=== PATIENT | female | born 1940 | race Caucasian/White ===

== ENCOUNTER 2017-10-16 14:10 | Emergency (ER) | payer MEDICARE, BC ==
[~2017-10-16] VITALS: Ht 172.7 cm; Wt 105.0 kg
[~2017-10-16 14:10] MED LIST: GABA-530 PO
[2017-10-16 15:06] VITALS: BP 136/93
== END 2017-10-16 16:40 | disposition home or self-care (01) ==
LOC: ER 14:15
DX: I80.02 Phlebitis and thrombophlebitis of superficial vessels of left lower extremity (principal); I10 Essential (primary) hypertension; J45.909 Unspecified asthma, uncomplicated; E11.9 Type 2 diabetes mellitus without complications; Z90.49 Acquired absence of other specified parts of digestive tract; Z98.890 Other specified postprocedural states
CPT/HCPCS: 93971; 99284

== ENCOUNTER 2018-03-06 14:28 | Emergency (ER) | payer MEDICARE, BC ==
[~2018-03-06] VITALS: Ht 172.7 cm; Wt 105.3 kg
[2018-03-06 16:27] VITALS: BP 121/67
== END 2018-03-06 16:28 | disposition home or self-care (01) ==
LOC: ER 14:28
DX: M54.5 Low back pain (principal); I10 Essential (primary) hypertension; J45.909 Unspecified asthma, uncomplicated; E11.9 Type 2 diabetes mellitus without complications; Z86.718 Personal history of other venous thrombosis and embolism; Z90.49 Acquired absence of other specified parts of digestive tract; Z90.710 Acquired absence of both cervix and uterus; Z88.8 Allergy status to other drugs, medicaments and biological substances; Z79.899 Other long term (current) drug therapy; W18.39XA Other fall on same level, initial encounter; Y93.89 Activity, other specified; Y92.89 Other specified places as the place of occurrence of the external cause; Y99.8 Other external cause status
CPT/HCPCS: 71046; 72100; 99284

== ENCOUNTER 2019-02-09 15:44 | Emergency (ER) | payer MEDICARE, BC ==
[~2019-02-09] VITALS: Ht 172.7 cm; Wt 107.0 kg
[~2019-02-09 15:44] MED LIST changes: +ONDA4TAB12 PO
[2019-02-09 16:39] VITALS: BP 173/81
[2019-02-09 16:58] LABS: BASOPHILS # (AUTO) 0.1 X10'3 (0-0.2); BASOPHILS % (AUTO) 0.7 % (0-1); EOSINOPHILS # (AUTO) 0.3 X10'3 (0-0.9); EOSINOPHILS % (AUTO) 3.9 % (0-6); HEMATOCRIT 39.2 % (35.0-45.0); HEMOGLOBIN 13.3 g/dl (12.0-16.0); LYMPHOCYTES % (AUTO) 22.3 % (21-51); MEAN CORPUSCULAR HEMOGLOBIN 30.2 PG (27.0-31.0); MEAN CORPUSCULAR HGB CONC 33.8 g/dL (33.0-36.5); MEAN CORPUSCULAR VOLUME 89.2 FL (78-98); MONOCYTES # (AUTO) 0.6 X10'3 (0-0.9); NEUTROPHILS # (AUTO) 5.9 X10'3 (1.8-7.7); NEUTROPHILS % (AUTO) 66.1 % (42-75); PLATELET COUNT 253 X10'3 (140-440); RED CELL DISTRIBUTION WIDTH 13.6 % (11.5-14.5)
[2019-02-09 17:10] LABS: ALANINE AMINOTRANSFERASE 39 U/L (12-78); ALBUMIN 3.6 G/DL (3.4-5.0); ALBUMIN/GLOBULIN RATIO 0.9 (1.1-1.5); ALKALINE PHOSPHATASE 135 IU/L (46-116); ANION GAP 6 (8-16); ASPARTATE AMINO TRANSFERASE 21 U/L (10-37); BILIRUBIN,TOTAL 0.5 MG/DL (0.1-1.0); BLOOD UREA NITROGEN 16 MG/DL (7-18); CALCIUM 8.8 MG/DL (8.5-10.1); CHLORIDE 107 MMOL/L (99-107); CREATININE 0.84 MG/DL (0.40-0.90); GLUCOSE 125 MG/DL (70-104); POTASSIUM 3.8 MMOL/L (3.5-5.1); SODIUM 143 MMOL/L (135-145); TOTAL CARBON DIOXIDE 29.6 MMOL/L (24-32); TOTAL PROTEIN 7.5 G/DL (6.4-8.2); eGFR 66 ML/MIN
[2019-02-09] MEDS ORDERED: potassium chloride 8mEq ER tablet PO ONE (17:35)
[2019-02-09] MEDS ORDERED: furosemide 10 MG/1 ML 10ml inj IV ONE (17:35)
== END 2019-02-09 18:18 | disposition home or self-care (01) ==
LOC: ER 15:45
DX: I87.2 Venous insufficiency (chronic) (peripheral) (principal); I83.93 Asymptomatic varicose veins of bilateral lower extremities; R06.02 Shortness of breath; I10 Essential (primary) hypertension; E11.9 Type 2 diabetes mellitus without complications; J45.909 Unspecified asthma, uncomplicated; Z87.19 Personal history of other diseases of the digestive system; Z86.718 Personal history of other venous thrombosis and embolism; Z86.73 Personal history of transient ischemic attack (TIA), and cerebral infarction without residual deficits; Z88.8 Allergy status to other drugs, medicaments and biological substances; Z79.899 Other long term (current) drug therapy; Z90.49 Acquired absence of other specified parts of digestive tract; Z90.710 Acquired absence of both cervix and uterus; Z90.89 Acquired absence of other organs
CPT/HCPCS: 36415; 71045; 80053; 83880; 84484; 85025; 93005; 96374; 99284; J1940

== ENCOUNTER 2019-04-07 12:18 | Emergency (ER) | payer MEDICARE, BC ==
[~2019-04-07] VITALS: Ht 172.7 cm; Wt 102.0 kg
[2019-04-07] MEDS ORDERED: pantoprazole 40 MG vial IV ONE (13:45)
[2019-04-07] MEDS ORDERED: normal saline 1000ML IV soln IVB ONE (13:45)
[2019-04-07] MEDS ORDERED: morphine 4 MG/ML inj SYRINge IV ONE (13:45)
[2019-04-07] MEDS ORDERED: ondansetron/PF 4mg/2ml inj IV ONE (13:45)
[2019-04-07 14:06] LABS: BASOPHILS % (AUTO) 0.5 % (0-1); EOSINOPHILS # (AUTO) 0.3 X10'3 (0-0.9); HEMATOCRIT 36.8 % (35.0-45.0); HEMOGLOBIN 12.6 g/dl (12.0-16.0); LYMPHOCYTES # (AUTO) 1.9 X10'3 (1.1-4.8); LYMPHOCYTES % (AUTO) 21.4 % (21-51); MEAN CORPUSCULAR HEMOGLOBIN 30.4 PG (27.0-31.0); MEAN CORPUSCULAR HGB CONC 34.3 g/dL (33.0-36.5); MEAN CORPUSCULAR VOLUME 88.8 FL (78-98); MONOCYTES # (AUTO) 0.4 X10'3 (0-0.9); MONOCYTES % (AUTO) 4.8 % (2-12); NEUTROPHILS # (AUTO) 6.2 X10'3 (1.8-7.7); NEUTROPHILS % (AUTO) 70.3 % (42-75); PLATELET COUNT 268 X10'3 (140-440); RED BLOOD COUNT 4.14 X10'6 (4.20-5.60); WHITE BLOOD COUNT 8.8 X10'3 (4.5-11.0)
[2019-04-07 14:21] LABS: ALANINE AMINOTRANSFERASE 24 U/L (12-78); ALBUMIN 3.2 G/DL (3.4-5.0); ALBUMIN/GLOBULIN RATIO 0.7 (1.1-1.5); ALKALINE PHOSPHATASE 109 IU/L (46-116); ANION GAP 7 (8-16); ASPARTATE AMINO TRANSFERASE 18 U/L (10-37); BILIRUBIN,TOTAL 0.6 MG/DL (0.1-1.0); BLOOD UREA NITROGEN 10 MG/DL (7-18); BUN/CREATININE RATIO 10.5 (6.6-38.0); CALCIUM 8.9 MG/DL (8.5-10.1); CHLORIDE 106 MMOL/L (99-107); CREATININE 0.95 MG/DL (0.40-0.90); GLUCOSE 220 MG/DL (70-104); LIPASE 153 U/L (73-393); POTASSIUM 3.3 MMOL/L (3.5-5.1); SODIUM 142 MMOL/L (135-145); TOTAL CARBON DIOXIDE 28.7 MMOL/L (24-32); TOTAL PROTEIN 7.5 G/DL (6.4-8.2); eGFR 57 ML/MIN
[2019-04-07] MEDS ORDERED: iohexol 300mg/ml 100ml inj. ONE (14:45)
--- NOTE | 2019-04-07 15:19 | NUR ---
Pt returned from CT scan. Pt's IV restarted infusing. Pt reports a small swollen area to the left side of the lower lip. Pt reports her CT scan was completed with IV contrast.
[2019-04-07] MEDS ORDERED: diphenhydrAMINE 50 mg/ml inj IV ONE (15:50)
[2019-04-07] MEDS ORDERED: HYDR-3965 PO (15:57)
[2019-04-07] MEDS ORDERED: AMOX-580 PO (15:57)
[2019-04-07 16:44] VITALS: BP 141/74
== END 2019-04-07 16:45 | disposition home or self-care (01) ==
LOC: ER 12:19
DX: K57.92 Diverticulitis of intestine, part unspecified, without perforation or abscess without bleeding (principal); R19.7 Diarrhea, unspecified; I10 Essential (primary) hypertension; J45.909 Unspecified asthma, uncomplicated; E11.9 Type 2 diabetes mellitus without complications; Z86.718 Personal history of other venous thrombosis and embolism; Z86.73 Personal history of transient ischemic attack (TIA), and cerebral infarction without residual deficits; Z90.49 Acquired absence of other specified parts of digestive tract; Z90.710 Acquired absence of both cervix and uterus; Z90.89 Acquired absence of other organs; Z98.890 Other specified postprocedural states; Z88.8 Allergy status to other drugs, medicaments and biological substances; Z79.899 Other long term (current) drug therapy
CPT/HCPCS: 36415; 74177; 80053; 83605; 83690; 85025; 87040; 96374; 96375; 99284; C9113; J1200; J2270; J2405; J7040; Q9967

== ENCOUNTER 2019-05-07 09:58 | Inpatient (IN) | payer MEDICARE, BC ==
[2019-05-07] VITALS (16 sets, daily range): BP systolic 115–186; BP diastolic 40–95
[~2019-05-07] VITALS: Ht 172.7 cm; Wt 98.7 kg
[~2019-05-07 09:58] MED LIST changes: +ASPI81TA52 PO; +ATOR40TA72 PO; +CELE-85 PO; +DILT240C52 PO; +DULO60CA65 PO; +FURO40TA4 PO; -GABA-530 PO; +INSU300I SQ; +LOSA50TA64 PO; -ONDA4TAB12 PO; +SPIR25TA5 PO; +TRAZ-219 PO; +VALA500T37 PO; +ZOLP10TA5 PO; +albuterol 2.5 MG/3 ML nebule NEB ONE; +ceFOXitin sod/dextrose 2g/50ml 50 ML IV ONE; +famotidine 20mg tablet PO ONE
[2019-05-07] MEDS: ringers solution, lacted 1,000 ML IV SCH (10:32)
[2019-05-07 11:18] LABS: CLARITY,URINE SLIGHTLY CLOUDY (Clear); COLOR,URINE YELLOW (Yellow); GLUCOSE, URINE NEGATIVE (Neg); KETONES,URINE NEGATIVE (Neg); LEUKOCYTE ESTERASE ,URINE NEGATIVE (Neg); NITRITES, URINE NEGATIVE (Neg); OCCULT BLOOD,URINE NEGATIVE (Neg); PH,URINE 5.5 (4.8-8.0); PROTEIN,URINE NEGATIVE (Neg); UROBILINOGEN,URINE 0.2 E.U/dL (0.2-1.0)
[2019-05-07 11:21] LABS: UA COLLECTION TYPE OTHER
[2019-05-07 11:23] LABS: BASOPHILS % (AUTO) 0.4 % (0-1); EOSINOPHILS % (AUTO) 0.4 % (0-6); LYMPHOCYTES # (AUTO) 1.8 X10'3 (1.1-4.8); LYMPHOCYTES % (AUTO) 16.1 % (21-51); MEAN CORPUSCULAR HEMOGLOBIN 30.7 PG (27.0-31.0); MEAN CORPUSCULAR HGB CONC 34.8 g/dL (33.0-36.5); MEAN CORPUSCULAR VOLUME 88.1 FL (78-98); MEAN PLATELET VOLUME 7.2 FL (7.4-10.4); MONOCYTES # (AUTO) 0.6 X10'3 (0-0.9); MONOCYTES % (AUTO) 5.4 % (2-12); NEUTROPHILS # (AUTO) 8.8 X10'3 (1.8-7.7); NEUTROPHILS % (AUTO) 77.7 % (42-75); PRE OP HEMATOCRIT 38.8 % (35.0-45.0); PRE OP HEMOGLOBIN 13.5 g/dL (12.0-16.0); PRE OP PLATELET COUNT 306 X10'3 (140-440); RED CELL DISTRIBUTION WIDTH 13.6 % (11.5-14.5)
[2019-05-07 11:28] LABS: PRE OP PROTIME 10.3 SECONDS (9.0-12.0)
[2019-05-07 11:30] LABS: ALBUMIN 4.2 G/DL (3.4-5.0); ALKALINE PHOSPHATASE 135 IU/L (46-116); BLOOD UREA NITROGEN 21 MG/DL (7-18); BUN/CREATININE RATIO 17.6 (6.6-38.0); CALCIUM 9.2 MG/DL (8.5-10.1); CHLORIDE 102 MMOL/L (99-107); CREATININE 1.19 MG/DL (0.40-0.90); PRE OP ALT 24 U/L (30-65); PRE OP ANION GAP 12 (8-16); PRE OP AST 27 U/L (10-37); PRE OP GLUCOSE 115 MG/DL (70-104); PRE OP POTASSIUM 3.9 MMOL/L (3.4-5.1); PRE OP SODIUM 138 MMOL/L (135-145); TOTAL CARBON DIOXIDE 23.6 MMOL/L (24-32); TOTAL PROTEIN 8.3 G/DL (6.4-8.2); eGFR 44 ML/MIN
[2019-05-07 11:37] LABS: HEMOGLOBIN A1C 7.7 % (4.5-6.2)
[2019-05-07] MEDS ORDERED: BUPIVAcaine/PF 2.5 mg/ml (0.25%) 30ml vial ONE (11:51)
[2019-05-07] MEDS ORDERED: ceFAZolin 1000mg inj ONE (11:51)
[2019-05-07 12:01] LABS: BACTERIA,URINE 1+ /HPF (Neg); MUCUS STRANDS FEW /LPF (Neg); RBC,URINE 0-2 /HPF (0-2); SQUAMOUS EPITHELIAL CELL,UR MODERATE /LPF (FEW); STARCH,URINE MANY /HPF (NEGATIVE)
[2019-05-07] MEDS ORDERED: desflurane 240ml liquid inh. IH ONE (13:05)
[2019-05-07] MEDS ORDERED: midazolam 2 mg/2 ml injection ONE (13:14)
[2019-05-07] MEDS ORDERED: fentaNYL /PF 50mcg/ml 5ml ampule ONE (13:15)
[2019-05-07] MEDS ORDERED: LIDOcaine 2% (20mg/ml) 5ml vial ONE (13:17)
[2019-05-07] MEDS ORDERED: propofol inj 20 ML IV ONE (13:17)
[2019-05-07] MEDS ORDERED: rocuronium 10mg/ml inj IV ONE ×2 (13:18→15:29)
[2019-05-07] MEDS ORDERED: naloxone 0.4 mg/ml inj IV PRN (13:45)
[2019-05-07] MEDS ORDERED: CADD PCA waste documentation MC PRN (13:45)
[2019-05-07] MEDS ORDERED: MESSAGE TO PHARMACY PO ONE (13:45)
[2019-05-07] MEDS ORDERED: glucagon, human recombinant 1mg kit SUBCUT PRN (13:45)
[2019-05-07] MEDS ORDERED: dextrose ORAL solution 15 GM/59 ML bottle PO PRN ×2 (13:45)
[2019-05-07] MEDS ORDERED: dextrose 50%-water 50ml dispensing syringe IV PRN ×2 (13:45)
[2019-05-07] MEDS: HYDROmorphone/NS 1 mg/ml CADD 50 ML IV SCH ×6 (15:00→23:00)
[2019-05-07] MEDS ORDERED: acetaminophen 1,000mg/100ml IV 100 ML IV ONE (15:29)
[2019-05-07] MEDS ORDERED: ondansetron/PF 4mg/2ml inj ONE (15:32)
--- NOTE | 2019-05-07 15:50 | NUR ---
Received from OR via BED , accompanied by Anesthesiologist DR RUTHERFORD and report given by Anesthesiolgist. PATIENT WAKING UP, DENIES PAIN, V/S WNL, NEUROVASCULAR CHECKS INTACT, 18G PIV LUE, SCD ON, BANDAIDS TO LAP SIGHTS OF ABDOMEN AND PROVENA DRESSING AT 125 CONTINOUS SUCTION WITH NO LEAKS DETECTED AND CDI. F/C DRAINING REDISH PINK URINE W/ NO CLOTS OBSERVED.
--- NOTE | 2019-05-07 16:40 | NUR ---
PATIENT A&OX4, C/O PAIN SURVEY DIRECTOR GIVEN AND BOLUS GIVEN, PATIENT USING BUTTON ON SURVEY DIRECTOR AND VERBALIZED UNDERSTANDING OF SURVEY DIRECTOR, V/S WNL, NEUROVASCULAR CHECKS INTACT, 18G PIV LUE, SCD ON, BANDAIDS TO LAP SIGHTS OF ABDOMEN AND PROVENA DRESSING AT 125 CONTINOUS SUCTION WITH NO LEAKS DETECTED AND CDI. F/C DRAINING REDISH PINK URINE W/ NO CLOTS OBSERVED. PATIENT TAKEN TO 344B WITH ALL BELONGINGS AND HOOKED UP TO MONITORS IN ROOM AND REPORT GIVEN TO RN WHO HAS TAKEN OVER PATIENT CARE.
--- NOTE | 2019-05-07 16:51 | NUR ---
Received patient to room 344b via bed accompanied by x1 staff, Dustin. Patient drowsy but easily awakens to voice. Patient c/o pain to abd 10/10. Patient educated on use of dilaudid cadd pump. Dustin, oil recovery unit operator administered boluses. Lap sites to abd cdi. Prevena wound vac patent and cdi. Willard catheter draining to gravity with pink color. Bed low and locked. Side rails x2 up. Oriented patient to room and call light. Call light within patient's reach.
[2019-05-07] MEDS ORDERED: ketorolac tromethamine 15mg/ml inj. IV ONE (17:15)
--- NOTE | 2019-05-07 17:20 | NUR ---
Notified Dr. Leiva patient c/o unmanaged pain. Dr. Leiva ok for 0.2mg bolus of dilaudid cadd and also ordered x1 time dose of toradol.
--- NOTE | 2019-05-07 18:47 | NUR ---
Patient in room [facility]. I have received report from Edna ALEXANDER and had the opportunity to ask questions and assume patient care.
--- NOTE | 2019-05-07 18:52 | NUR ---
Problems reprioritized. Patient report given, questions answered & plan of care reviewed with CATHERINE Land.
[2019-05-07 20:16] LABS: POTASSIUM 5.4 MMOL/L (3.5-5.1); eGFR 44 ML/MIN
[2019-05-07] MEDS ORDERED: INSULIN GLARGINE HUM REC ANLOG 60 UNIT SQ SCH (21:00)
[2019-05-07] MEDS: insulin glargine (Lantus) pen - multi-dose SQ SCH (21:30)
[2019-05-07] MEDS: zolpidem 5mg tablet PO SCH (21:39)
[2019-05-07] MEDS: traZODone 50mg tablet PO SCH (21:39)
[2019-05-07] MEDS: atorvastatin 20mg tablet PO SCH (21:40)
[2019-05-08] VITALS: BP 123/65
[2019-05-08] MEDS: HYDROmorphone/NS 1 mg/ml CADD 50 ML IV SCH ×12 (01:00→23:00)
[2019-05-08 04:00] VITALS: BP 120/53
[2019-05-08 04:59] LABS: BASOPHILS % (AUTO) 0 % (0-1); EOSINOPHILS % (AUTO) 0 % (0-6); HEMATOCRIT 34.6 % (35.0-45.0); HEMOGLOBIN 11.9 g/dl (12.0-16.0); LYMPHOCYTES # (AUTO) 0.9 X10'3 (1.1-4.8); LYMPHOCYTES % (AUTO) 7.7 % (21-51); MEAN CORPUSCULAR HEMOGLOBIN 30.9 PG (27.0-31.0); MEAN CORPUSCULAR HGB CONC 34.4 g/dL (33.0-36.5); MEAN PLATELET VOLUME 7.6 FL (7.4-10.4); MONOCYTES # (AUTO) 0.6 X10'3 (0-0.9); MONOCYTES % (AUTO) 5.2 % (2-12); NEUTROPHILS # (AUTO) 10.7 X10'3 (1.8-7.7); NEUTROPHILS % (AUTO) 87.1 % (42-75); PLATELET COUNT 311 X10'3 (140-440); RED BLOOD COUNT 3.85 X10'6 (4.20-5.60); RED CELL DISTRIBUTION WIDTH 13.7 % (11.5-14.5); WHITE BLOOD COUNT 12.3 X10'3 (4.5-11.0)
[2019-05-08 05:12] LABS: ANION GAP 9 (8-16); CALCIUM 8.4 MG/DL (8.5-10.1); CHLORIDE 102 MMOL/L (99-107); CREATININE 1.22 MG/DL (0.40-0.90); GLUCOSE 166 MG/DL (70-104); POTASSIUM 5.2 MMOL/L (3.5-5.1); SODIUM 136 MMOL/L (135-145); TOTAL CARBON DIOXIDE 25.1 MMOL/L (24-32); eGFR 43 ML/MIN
[2019-05-08 05:19] LABS: BLOOD UREA NITROGEN 24 MG/DL (7-18); BUN/CREATININE RATIO 19.7 (6.6-38.0)
--- NOTE | 2019-05-08 06:21 | NUR ---
Problems reprioritized. Patient report given, questions answered & plan of care reviewed with Yohana ALEXANDER.
--- NOTE | 2019-05-08 06:50 | NUR ---
Patient in room [facility]. I have received report from CATHERINE CHAWLA and had the opportunity to ask questions and assume patient care.
[2019-05-08 07:00] VITALS: BP 121/66
[2019-05-08] MEDS: celeCOXIB 100mg capsule PO SCH (10:26)
[2019-05-08] MEDS: furosemide 40mg tablet PO SCH (10:26)
[2019-05-08] MEDS: aspirin 81mg tablet.DR PO SCH (10:27)
[2019-05-08] MEDS: duloxetine 30mg CAPSULE.DR PO SCH (10:27)
[2019-05-08] MEDS: diltiazem CD 120mg capsule (once-daily) PO SCH (10:27)
[2019-05-08] MEDS: losartan 50mg tablet PO SCH (10:27)
[2019-05-08] MEDS: spironolactone 25 MG tablet PO SCH (10:27)
[2019-05-08] MEDS: valacyclovir 500mg tablet PO SCH (10:27)
[2019-05-08] MEDS: ringers solution, lacted 1,000 ML IV SCH (10:31)
[2019-05-08 11:00] VITALS: BP 131/62
[2019-05-08] MEDS: insulin Lispro (HumaLOG) vial - multi-dose SQ SCH ×2 (14:52→19:00)
--- NOTE | 2019-05-08 15:14 | NUR ---
DM Consult: A1C 7.7 Pt hx T2DM and chronic diverticular disease s/p sigmoid resection for dense adhesions and severe diverticulitis of descending colon per MD note. Pt/family seen by SHELBY for written/verbal DM/low-fiber diet ed w/ RD contact information provided. RD encouraged pt to attend CDE course and contact RD if further questions/concerns. Addendum: 05/08/19 at [address] Amended: Links added.
--- NOTE | 2019-05-08 18:15 | NUR ---
Problems reprioritized. Patient report given, questions answered & plan of care reviewed with CATHERINE CHAWLA.
--- NOTE | 2019-05-08 18:20 | NUR ---
Patient in room [facility]. I have received report from Yoahna ALEXANDER and had the opportunity to ask questions and assume patient care.
[2019-05-08 18:30] VITALS: BP 123/51
[2019-05-08] MEDS: zolpidem 5mg tablet PO SCH (21:00)
[2019-05-08] MEDS: insulin glargine (Lantus) pen - multi-dose SQ SCH (21:42)
[2019-05-08] MEDS: atorvastatin 20mg tablet PO SCH (22:10)
[2019-05-08] MEDS: traZODone 50mg tablet PO SCH (22:10)
[2019-05-09] VITALS: BP 101/57
[2019-05-09] MEDS: HYDROmorphone/NS 1 mg/ml CADD 50 ML IV SCH ×12 (01:00→23:00)
[2019-05-09 04:45] LABS: BASOPHILS % (AUTO) 0.3 % (0-1); EOSINOPHILS % (AUTO) 0.2 % (0-6); HEMATOCRIT 27.5 % (35.0-45.0); HEMOGLOBIN 9.4 g/dl (12.0-16.0); LYMPHOCYTES % (AUTO) 18.9 % (21-51); MEAN CORPUSCULAR HEMOGLOBIN 30.7 PG (27.0-31.0); MEAN CORPUSCULAR VOLUME 90.2 FL (78-98); MEAN PLATELET VOLUME 7.3 FL (7.4-10.4); MONOCYTES # (AUTO) 1.1 X10'3 (0-0.9); MONOCYTES % (AUTO) 10.7 % (2-12); NEUTROPHILS # (AUTO) 7.4 X10'3 (1.8-7.7); NEUTROPHILS % (AUTO) 69.9 % (42-75); PLATELET COUNT 257 X10'3 (140-440); RED BLOOD COUNT 3.05 X10'6 (4.20-5.60); RED CELL DISTRIBUTION WIDTH 13.6 % (11.5-14.5); WHITE BLOOD COUNT 10.6 X10'3 (4.5-11.0)
[2019-05-09 05:05] LABS: ALANINE AMINOTRANSFERASE 18 U/L (12-78); ALBUMIN 2.7 G/DL (3.4-5.0); ALBUMIN/GLOBULIN RATIO 0.9 (1.1-1.5); ALKALINE PHOSPHATASE 75 IU/L (46-116); ANION GAP 5 (8-16); ASPARTATE AMINO TRANSFERASE 23 U/L (10-37); BILIRUBIN,TOTAL 0.9 MG/DL (0.1-1.0); BLOOD UREA NITROGEN 21 MG/DL (7-18); BUN/CREATININE RATIO 19.1 (6.6-38.0); CALCIUM 8.6 MG/DL (8.5-10.1); CHLORIDE 101 MMOL/L (99-107); GLUCOSE 143 MG/DL (70-104); POTASSIUM 4.7 MMOL/L (3.5-5.1); SODIUM 133 MMOL/L (135-145); TOTAL CARBON DIOXIDE 26.8 MMOL/L (24-32); TOTAL PROTEIN 5.7 G/DL (6.4-8.2); eGFR 48 ML/MIN
--- NOTE | 2019-05-09 06:15 | NUR ---
Patient in room [facility]. I have received report from CATHERINE CHAWLA and had the opportunity to ask questions and assume patient care.
--- NOTE | 2019-05-09 06:46 | NUR ---
Unable to remove saini catheter this am D/T rapid going on on A bed. Day RN aware.
--- NOTE | 2019-05-09 06:48 | NUR ---
Problems reprioritized. Patient report given, questions answered & plan of care reviewed with Yohana ALEXANDER. Addendum: 05/09/19 at 0651 by Shanda Gaffney RN Day nurse to remind patient to have her family bring in her special pillows for her feet.
[2019-05-09 07:00] VITALS: BP 119/58
[2019-05-09] MEDS: duloxetine 30mg CAPSULE.DR PO SCH (08:40)
[2019-05-09] MEDS: spironolactone 25 MG tablet PO SCH (08:40)
[2019-05-09] MEDS: celeCOXIB 100mg capsule PO SCH (08:40)
[2019-05-09] MEDS: diltiazem CD 120mg capsule (once-daily) PO SCH (08:40)
[2019-05-09] MEDS: valacyclovir 500mg tablet PO SCH (08:41)
[2019-05-09] MEDS: aspirin 81mg tablet.DR PO SCH (08:41)
[2019-05-09] MEDS: losartan 50mg tablet PO SCH (08:41)
[2019-05-09] MEDS: furosemide 40mg tablet PO SCH (08:41)
[2019-05-09] MEDS: insulin Lispro (HumaLOG) vial - multi-dose SQ SCH ×2 (10:10→13:52)
[2019-05-09 11:00] VITALS: BP 115/69
--- NOTE | 2019-05-09 11:40 | NUR ---
NOTICED THERE WERE NO HOURLY ROUNDING OR NUTRITIONAL INTAKE INTERVENTIONS SO I ADDED THEM. I ALSO HAD THE PATIENT YESTERDAY. I MADE HOURLY ROUNDS AND PATIENT REMAINED SAFE AND FREE OF HARM. SHE ATE 75 TO 100% OF MEAL YESTERDAY
[2019-05-09 18:30] VITALS: BP 112/44
--- NOTE | 2019-05-09 18:30 | NUR ---
Patient in room [facility]. I have received report from Yohana ALEXANDER and had the opportunity to ask questions and assume patient care. Addendum: 05/09/19 at 1908 by Shanda Gaffney RN While in room discussing plan of care, patient passed some gas. Patient stated that she felt that maybe something came out with it. Rolled pt. and small amount of blood noted. Cleaned Pt., and D/c'd saini catheter and assist to bathroom. LInen /bed cleaned.
--- NOTE | 2019-05-09 19:00 | NUR ---
Patient has been up to bathroom x2/ Voiding w/o any complications and dark blood being passed from surgery. [address] to monitor. Addendum: 05/09/19 at 1937 by Shanda Gaffney RN Patient in no distress and is ready to go walking already.
--- NOTE | 2019-05-09 19:07 | NUR ---
Problems reprioritized. Patient report given, questions answered & plan of care reviewed with CATHERINE Land.
[2019-05-09] MEDS: insulin glargine (Lantus) pen - multi-dose SQ SCH (20:54)
[2019-05-09] MEDS: atorvastatin 20mg tablet PO SCH (21:51)
[2019-05-09] MEDS: traZODone 50mg tablet PO SCH (21:52)
[2019-05-09] MEDS: zolpidem 5mg tablet PO SCH (21:52)
[2019-05-10] VITALS: BP 109/50
[2019-05-10] MEDS: HYDROmorphone/NS 1 mg/ml CADD 50 ML IV SCH ×5 (01:00→09:00)
--- NOTE | 2019-05-10 04:56 | NUR ---
Patient only has LR at 20cc for cadd pump. Patient has been progressed to a full liquid diet and is tolerating well. Patient also has been passing gas. Addendum: 05/10/19 at 0505 by Shanda Gaffney RN Amended: Links added.
[2019-05-10 05:20] LABS: BASOPHILS % (AUTO) 0.2 % (0-1); EOSINOPHILS # (AUTO) 0.1 X10'3 (0-0.9); HEMATOCRIT 28.5 % (35.0-45.0); HEMOGLOBIN 9.9 g/dl (12.0-16.0); LYMPHOCYTES # (AUTO) 2.5 X10'3 (1.1-4.8); MEAN CORPUSCULAR HEMOGLOBIN 31.5 PG (27.0-31.0); MEAN CORPUSCULAR HGB CONC 34.7 g/dL (33.0-36.5); MEAN CORPUSCULAR VOLUME 90.9 FL (78-98); MEAN PLATELET VOLUME 7.3 FL (7.4-10.4); MONOCYTES # (AUTO) 0.8 X10'3 (0-0.9); MONOCYTES % (AUTO) 8.1 % (2-12); NEUTROPHILS # (AUTO) 6.6 X10'3 (1.8-7.7); NEUTROPHILS % (AUTO) 65.7 % (42-75); PLATELET COUNT 291 X10'3 (140-440); RED BLOOD COUNT 3.14 X10'6 (4.20-5.60); RED CELL DISTRIBUTION WIDTH 13.7 % (11.5-14.5); WHITE BLOOD COUNT 10.1 X10'3 (4.5-11.0)
[2019-05-10 05:29] LABS: ALBUMIN 2.9 G/DL (3.4-5.0); ANION GAP 7 (8-16); BLOOD UREA NITROGEN 16 MG/DL (7-18); BUN/CREATININE RATIO 15.1 (6.6-38.0); CALCIUM 8.7 MG/DL (8.5-10.1); CHLORIDE 105 MMOL/L (99-107); CREATININE 1.06 MG/DL (0.40-0.90); GLUCOSE 94 MG/DL (70-104); POTASSIUM 4.3 MMOL/L (3.5-5.1); SODIUM 142 MMOL/L (135-145); TOTAL CARBON DIOXIDE 30.1 MMOL/L (24-32); eGFR 50 ML/MIN
--- NOTE | 2019-05-10 06:40 | NUR ---
Problems reprioritized. Patient report given, questions answered & plan of care reviewed with Torres norris.
[2019-05-10] MEDS: spironolactone 25 MG tablet PO SCH (08:24)
[2019-05-10] MEDS: losartan 50mg tablet PO SCH (08:24)
[2019-05-10] MEDS: aspirin 81mg tablet.DR PO SCH (08:24)
[2019-05-10] MEDS: valacyclovir 500mg tablet PO SCH (08:24)
[2019-05-10] MEDS: furosemide 40mg tablet PO SCH (08:24)
[2019-05-10] MEDS: diltiazem CD 120mg capsule (once-daily) PO SCH (08:24)
[2019-05-10] MEDS: duloxetine 30mg CAPSULE.DR PO SCH (08:24)
[2019-05-10] MEDS: celeCOXIB 100mg capsule PO SCH (08:24)
[2019-05-10] MEDS: insulin Lispro (HumaLOG) vial - multi-dose SQ SCH ×3 (08:35→18:35)
--- NOTE | 2019-05-10 10:13 | NUR ---
Joan Burgos, at bedside to take patient to MRI at this time.
[2019-05-10] MEDS ORDERED: HYDROcodone/acetaminophen 5mg/325mg tablet PO PRN (11:25)
--- NOTE | 2019-05-10 13:46 | NUR ---
Initial: Patient s/p laparoscopic sigmoid colectomy on 05/07 d/t dense adhesions severe diverticulitis of descending colon per MD note. diet is carb controlled, pending PO documentation. Will continue to follow. Recommend: 1. continue carb controlled diet 2. bowel care as needed, pt receiving norco prn 3. weight per rx Addendum: 05/10/19 at [address] Amended: Links added.
--- NOTE | 2019-05-10 18:25 | NUR ---
Received report from Jabari ALEXANDER pt is awake and alert, finished up with dinner, in no apparent distress, call light and items of freq use within reach.
[2019-05-10 19:00] VITALS: BP 123/50
[2019-05-10] MEDS: atorvastatin 20mg tablet PO SCH (21:14)
[2019-05-10] MEDS: zolpidem 5mg tablet PO SCH (21:14)
[2019-05-10] MEDS: traZODone 50mg tablet PO SCH (21:14)
[2019-05-10] MEDS: insulin glargine (Lantus) pen - multi-dose SQ SCH (21:17)
[2019-05-11] VITALS: BP 132/60
--- NOTE | 2019-05-11 06:05 | NUR ---
Patient in room [facility]. I have received report from CATHERINE Worrell and had the opportunity to ask questions and assume patient care.
[2019-05-11 06:30] VITALS: BP 122/58
--- NOTE | 2019-05-11 06:48 | NUR ---
Gave report to Joanna RN pt was up to restroom on RA in no apparent distress
[2019-05-11 07:00] LABS: BASOPHILS % (AUTO) 0.2 % (0-1); EOSINOPHILS # (AUTO) 0.2 X10'3 (0-0.9); HEMOGLOBIN 9.9 g/dl (12.0-16.0); LYMPHOCYTES % (AUTO) 27.1 % (21-51); MEAN CORPUSCULAR HEMOGLOBIN 30.9 PG (27.0-31.0); MEAN CORPUSCULAR HGB CONC 34.2 g/dL (33.0-36.5); MEAN CORPUSCULAR VOLUME 90.4 FL (78-98); MONOCYTES # (AUTO) 0.9 X10'3 (0-0.9); MONOCYTES % (AUTO) 8.1 % (2-12); NEUTROPHILS % (AUTO) 62.6 % (42-75); PLATELET COUNT 302 X10'3 (140-440); RED BLOOD COUNT 3.21 X10'6 (4.20-5.60); RED CELL DISTRIBUTION WIDTH 13.6 % (11.5-14.5); WHITE BLOOD COUNT 11.2 X10'3 (4.5-11.0)
[2019-05-11 07:14] LABS: ALBUMIN 2.8 G/DL (3.4-5.0); ANION GAP 6 (8-16); BLOOD UREA NITROGEN 12 MG/DL (7-18); CALCIUM 8.6 MG/DL (8.5-10.1); CHLORIDE 104 MMOL/L (99-107); CREATININE 0.86 MG/DL (0.40-0.90); GLUCOSE 113 MG/DL (70-104); POTASSIUM 4.3 MMOL/L (3.5-5.1); SODIUM 141 MMOL/L (135-145); TOTAL CARBON DIOXIDE 30.9 MMOL/L (24-32); eGFR 64 ML/MIN
[2019-05-11] MEDS: losartan 50mg tablet PO SCH (09:32)
[2019-05-11] MEDS: furosemide 40mg tablet PO SCH (09:33)
[2019-05-11] MEDS: valacyclovir 500mg tablet PO SCH (09:33)
[2019-05-11] MEDS: spironolactone 25 MG tablet PO SCH (09:33)
[2019-05-11] MEDS: aspirin 81mg tablet.DR PO SCH (09:33)
[2019-05-11] MEDS: diltiazem CD 120mg capsule (once-daily) PO SCH (09:33)
[2019-05-11] MEDS: duloxetine 30mg CAPSULE.DR PO SCH (09:33)
[2019-05-11] MEDS: celeCOXIB 100mg capsule PO SCH (09:33)
[2019-05-11] MEDS: insulin Lispro (HumaLOG) vial - multi-dose SQ SCH ×2 (09:47→13:23)
[2019-05-11 11:00] VITALS: BP 130/63
--- NOTE | 2019-05-11 17:00 | NUR ---
DC inst provided to pt. IV DC'd, tip intact. All belongings sent w/pt. WC to front lobby.
== END 2019-05-11 17:00 | disposition home or self-care (01) | DRG 331 ==
LOC: PAS IN 09:58 → EDSTATUS 12:30 → SUR 3N 17:02
PROVIDERS: ADMIT Surgery; ATTEND Surgery
PROC: 0DNU4ZZ Release Omentum, Percutaneous Endoscopic Approach (ICD-10-PCS; 2019-05-07)
PROC: 0DTN4ZZ Resection of Sigmoid Colon, Percutaneous Endoscopic Approach (ICD-10-PCS; principal; 2019-05-07 13:05)
PROC: 0T788DZ Dilation of Bilateral Ureters with Intraluminal Device, Via Natural or Artificial Opening Endoscopic (ICD-10-PCS; 2019-05-07 13:05)
PROC: 5A09357 Assistance with Respiratory Ventilation, Less than 24 Consecutive Hours, Continuous Positive Airway Pressure (ICD-10-PCS; 2019-05-08)
PROC: 5A09357 Assistance with Respiratory Ventilation, Less than 24 Consecutive Hours, Continuous Positive Airway Pressure (ICD-10-PCS; 2019-05-09)
PROC: 5A09357 Assistance with Respiratory Ventilation, Less than 24 Consecutive Hours, Continuous Positive Airway Pressure (ICD-10-PCS; 2019-05-10)
PROC: 5A09357 Assistance with Respiratory Ventilation, Less than 24 Consecutive Hours, Continuous Positive Airway Pressure (ICD-10-PCS; 2019-05-11)
DX: K57.32 Diverticulitis of large intestine without perforation or abscess without bleeding (principal); E11.9 Type 2 diabetes mellitus without complications; E78.5 Hyperlipidemia, unspecified; I10 Essential (primary) hypertension; E66.9 Obesity, unspecified; J45.909 Unspecified asthma, uncomplicated; K42.9 Umbilical hernia without obstruction or gangrene; K66.0 Peritoneal adhesions (postprocedural) (postinfection); F32.9 Major depressive disorder, single episode, unspecified; G47.30 Sleep apnea, unspecified; K58.0 Irritable bowel syndrome with diarrhea; Z86.73 Personal history of transient ischemic attack (TIA), and cerebral infarction without residual deficits; Z68.33 Body mass index [BMI] 33.0-33.9, adult
CPT/HCPCS: 36415; 76000; 80048; 80053; 81001; 82565; 82948; 83036; 84132; 85025; 85610; 85730; 86885; 86900; 86901; 86920; 87081; 87088; 88307; 94640; A4215; A4355; A4618; A7000; C1758; C1769; G0378; J0131; J0690; J0694; J1170; J1815; J1885; J2001; J2250; J2405; J2704; J3010; J3490; J7120

== ENCOUNTER 2021-03-03 13:47 | Emergency (ER) | payer MEDICARE, BC ==
[~2021-03-03] VITALS: Ht 167.6 cm; Wt 98.1 kg
[~2021-03-03 13:47] MED LIST changes: -TRAZ-219 PO; +TRAZ-256 PO; -VALA500T37 PO; +VALA500T41 PO; -albuterol 2.5 MG/3 ML nebule NEB ONE; -ceFOXitin sod/dextrose 2g/50ml 50 ML IV ONE; -famotidine 20mg tablet PO ONE
[2021-03-03 13:56] VITALS: BP 141/68
== END 2021-03-03 16:48 | disposition home or self-care (01) ==
LOC: ER 13:47
DX: M79.672 Pain in left foot (principal); I10 Essential (primary) hypertension; J45.909 Unspecified asthma, uncomplicated; E11.43 Type 2 diabetes mellitus with diabetic autonomic (poly)neuropathy; Z86.718 Personal history of other venous thrombosis and embolism; Z87.11 Personal history of peptic ulcer disease; Z90.49 Acquired absence of other specified parts of digestive tract; Z90.710 Acquired absence of both cervix and uterus; Z90.89 Acquired absence of other organs; Z88.8 Allergy status to other drugs, medicaments and biological substances; Z91.048 Other nonmedicinal substance allergy status; Z79.82 Long term (current) use of aspirin; Z79.4 Long term (current) use of insulin; Z79.899 Other long term (current) drug therapy
CPT/HCPCS: 73630; 99283

== ENCOUNTER 2021-03-28 07:47 | Day surgery (SDC) | payer MEDICARE, BC ==
[2021-03-21 15:40] LABS: BASOPHILS % (AUTO) 0.4 % (0-1); EOSINOPHILS # (AUTO) 0.1 X10'3 (0-0.9); EOSINOPHILS % (AUTO) 1.7 % (0-6); LYMPHOCYTES # (AUTO) 1.9 X10'3 (1.1-4.8); LYMPHOCYTES % (AUTO) 21.7 % (21-51); MEAN CORPUSCULAR HEMOGLOBIN 30.8 PG (27.0-31.0); MEAN CORPUSCULAR HGB CONC 33.5 g/dL (33.0-36.5); MEAN CORPUSCULAR VOLUME 92.1 FL (78-98); MEAN PLATELET VOLUME 7.5 FL (7.4-10.4); MONOCYTES # (AUTO) 0.5 X10'3 (0-0.9); NEUTROPHILS # (AUTO) 6.1 X10'3 (1.8-7.7); NEUTROPHILS % (AUTO) 70.2 % (42-75); PRE OP HEMATOCRIT 40.8 % (35.0-45.0); PRE OP HEMOGLOBIN 13.6 g/dL (12.0-16.0); PRE OP PLATELET COUNT 271 X10'3 (140-440); RED BLOOD COUNT 4.43 X10'6 (4.20-5.60)
[2021-03-21 15:57] LABS: ALBUMIN 3.6 G/DL (3.4-5.0); ALKALINE PHOSPHATASE 114 IU/L (46-116); BLOOD UREA NITROGEN 20 MG/DL (7-18); BUN/CREATININE RATIO 21.7 (6.6-38.0); CALCIUM 9.4 MG/DL (8.5-10.1); CHLORIDE 108 MMOL/L (99-107); CREATININE 0.92 MG/DL (0.40-0.90); PRE OP ALT 22 U/L (30-65); PRE OP ANION GAP 9 (8-16); PRE OP AST 16 U/L (10-37); PRE OP BILIRUB, TOTAL 0.6 MG/DL (0.0-1.0); PRE OP GLUCOSE 107 MG/DL (70-104); PRE OP POTASSIUM 3.7 MMOL/L (3.4-5.1); PRE OP SODIUM 145 MMOL/L (135-145); TOTAL CARBON DIOXIDE 28.2 MMOL/L (24-32); TOTAL PROTEIN 7.3 G/DL (6.4-8.2); eGFR 59 ML/MIN
[~2021-03-28] VITALS: Ht 167.6 cm; Wt 96.3 kg
[2021-03-28] VITALS (9 sets, daily range): BP systolic 96–124; BP diastolic 56–59
[~2021-03-28 07:47] MED LIST changes: -ATOR40TA72 PO; +MULT-1133 PO; +ROSU20TA2 PO; +TIOT18CA3 INH; +UBID200C37 PO; +cefazolin/dext.iso 2gm/50ml 50 ML IV ONE; +famotidine 20mg tablet PO ONE; +hyomax SL; +ringers solution, lacted 1,000 ML IV SCH
[2021-03-28] MEDS ORDERED: fentaNYL/PF 50MCG/1 ML 2ML syringe ONE (09:39)
[2021-03-28] MEDS ORDERED: midazolam 1 mg/ML 2ml injection ONE (09:39)
[2021-03-28] MEDS ORDERED: BUPIVAcaine/PF 2.5 mg/ml (0.25%) 30ml vial IJ ONE (09:53)
[2021-03-28] MEDS ORDERED: LIDOcaine 0.5% (5mg/ml) 50ml vial ONE (09:56)
--- NOTE | 2021-03-28 10:09 | NUR ---
Received from OR via [facility] IN STABLE CONDTION, accompanied by Anesthesiologist and SUPERVISOR FUSING ROOM report given by SUPERVISOR FUSING ROOM AND Anesthesiolgist. Addendum: 03/28/21 at 1019 by Aliza Thompson RN Amended: Links added.
--- NOTE | 2021-03-28 11:29 | NUR ---
PATIENT DISCHARGED FROM PACU IN STABLE CONDITION AFTER WRITTEN AND VERBAL DISCHARGE INSTRUCTIONS GIVEN. PATIENT GAVE VERBAL UNDERSTANDING OF INSTRUCTIONS GIVEN. PATIENT LEFT FACILITY VIA WHEELCHAIR WITH RN. Addendum: 03/28/21 at 1140 by Aliza Thompson RN Amended: Links added.
== END 2021-03-28 11:29 | disposition home or self-care (01) ==
LOC: PAS 07:47
PROVIDERS: ATTEND Orthopaedic Surgery Hand Surgery
DX: G56.02 Carpal tunnel syndrome, left upper limb (principal); M65.312 Trigger thumb, left thumb; M65.332 Trigger finger, left middle finger; M65.342 Trigger finger, left ring finger; M18.9 Osteoarthritis of first carpometacarpal joint, unspecified; M19.039 Primary osteoarthritis, unspecified wrist; J43.9 Emphysema, unspecified; G47.30 Sleep apnea, unspecified; I10 Essential (primary) hypertension; I47.1 Supraventricular tachycardia; E11.9 Type 2 diabetes mellitus without complications; E66.9 Obesity, unspecified; Z68.33 Body mass index [BMI] 33.0-33.9, adult; Z20.822 Contact with and (suspected) exposure to COVID-19; Z79.899 Other long term (current) drug therapy; Z98.890 Other specified postprocedural states; Z90.710 Acquired absence of both cervix and uterus; Z90.49 Acquired absence of other specified parts of digestive tract; Z96.659 Presence of unspecified artificial knee joint; Z88.8 Allergy status to other drugs, medicaments and biological substances; Z91.09 Other allergy status, other than to drugs and biological substances; Z86.73 Personal history of transient ischemic attack (TIA), and cerebral infarction without residual deficits; Z79.82 Long term (current) use of aspirin
CPT/HCPCS: 26055; 36415; 64721; 80053; 82948; 85025; J2001; J2250; J3010; J3490; U0003; U0005; Z7506; Z7512; A4215; J7120

== ENCOUNTER 2021-11-23 13:41 | Emergency (ER) | payer MEDICARE, BC ==
[~2021-11-23] VITALS: Ht 167.6 cm; Wt 108.6 kg
[~2021-11-23 13:41] MED LIST changes: -TIOT18CA3 INH; -cefazolin/dext.iso 2gm/50ml 50 ML IV ONE; -famotidine 20mg tablet PO ONE; -ringers solution, lacted 1,000 ML IV SCH
[2021-11-23] MEDS ORDERED: bisacodyl 10mg suppository rectal RC ONE (15:55)
[2021-11-23] MEDS ORDERED: normal saline 1000ML IV soln IVB ONE (15:55)
[2021-11-23 16:37] LABS: ALANINE AMINOTRANSFERASE 24 U/L (12-78); ALBUMIN 3.8 G/DL (3.4-5.0); ALKALINE PHOSPHATASE 114 IU/L (46-116); ANION GAP 7 (8-16); ASPARTATE AMINO TRANSFERASE 17 U/L (10-37); BILIRUBIN,TOTAL 0.8 MG/DL (0.1-1.0); BLOOD UREA NITROGEN 12 MG/DL (7-18); BUN/CREATININE RATIO 13.3 (6.6-38.0); CALCIUM 9.4 MG/DL (8.5-10.1); CHLORIDE 104 MMOL/L (99-107); GLUCOSE 152 MG/DL (70-104); POTASSIUM 3.5 MMOL/L (3.5-5.1); SODIUM 142 MMOL/L (135-145); TOTAL CARBON DIOXIDE 30.6 MMOL/L (24-32); TOTAL PROTEIN 7.6 G/DL (6.4-8.2); eGFR 60 ML/MIN
[2021-11-23 16:43] LABS: BASOPHILS % (AUTO) 0.2 % (0-1); EOSINOPHILS # (AUTO) 0.1 X10'3 (0-0.9); EOSINOPHILS % (AUTO) 1.3 % (0-6); HEMATOCRIT 39.8 % (35.0-45.0); HEMOGLOBIN 13.9 g/dl (12.0-16.0); LYMPHOCYTES # (AUTO) 1.7 X10'3 (1.1-4.8); MEAN CORPUSCULAR HEMOGLOBIN 30.8 PG (27.0-31.0); MEAN CORPUSCULAR HGB CONC 34.9 g/dL (33.0-36.5); MEAN CORPUSCULAR VOLUME 88.3 FL (78-98); MEAN PLATELET VOLUME 7.4 FL (7.4-10.4); MONOCYTES # (AUTO) 0.7 X10'3 (0-0.9); MONOCYTES % (AUTO) 6.3 % (2-12); NEUTROPHILS # (AUTO) 8.3 X10'3 (1.8-7.7); NEUTROPHILS % (AUTO) 76.2 % (42-75); PLATELET COUNT 267 X10'3 (140-440); RED BLOOD COUNT 4.51 X10'6 (4.20-5.60); RED CELL DISTRIBUTION WIDTH 12.8 % (11.5-14.5); WHITE BLOOD COUNT 10.9 X10'3 (4.5-11.0)
[2021-11-23 18:09] VITALS: BP 169/84
== END 2021-11-23 18:10 | disposition home or self-care (01) ==
LOC: ER 13:42
DX: K56.41 Fecal impaction (principal); I10 Essential (primary) hypertension; J45.909 Unspecified asthma, uncomplicated; E11.9 Type 2 diabetes mellitus without complications; Z86.73 Personal history of transient ischemic attack (TIA), and cerebral infarction without residual deficits; Z86.718 Personal history of other venous thrombosis and embolism; Z90.49 Acquired absence of other specified parts of digestive tract; Z90.710 Acquired absence of both cervix and uterus; Z88.8 Allergy status to other drugs, medicaments and biological substances
CPT/HCPCS: 36415; 74018; 80053; 85025; 93005; 99285; J7030; 96360

== ENCOUNTER 2022-07-03 17:08 | Emergency (ER) | payer MEDICARE, BC ==
[~2022-07-03] VITALS: Ht 167.6 cm; Wt 102.0 kg
[2022-07-03 17:39] VITALS: BP 151/76
[2022-07-03 20:29] LABS: BASOPHILS # (AUTO) 0.1 X10'3 (0-0.2); EOSINOPHILS # (AUTO) 0.2 X10'3 (0-0.9); EOSINOPHILS % (AUTO) 1.7 % (0-6); HEMATOCRIT 39.3 % (35.0-45.0); HEMOGLOBIN 13.3 g/dl (12.0-16.0); LYMPHOCYTES # (AUTO) 2.5 X10'3 (1.1-4.8); LYMPHOCYTES % (AUTO) 25.9 % (21-51); MEAN CORPUSCULAR HEMOGLOBIN 30.4 PG (27.0-31.0); MEAN CORPUSCULAR VOLUME 89.6 FL (78-98); MEAN PLATELET VOLUME 7.2 FL (7.4-10.4); MONOCYTES # (AUTO) 0.8 X10'3 (0-0.9); MONOCYTES % (AUTO) 8.2 % (2-12); NEUTROPHILS # (AUTO) 6.1 X10'3 (1.8-7.7); NEUTROPHILS % (AUTO) 63.2 % (42-75); PLATELET COUNT 259 X10'3 (140-440); RED BLOOD COUNT 4.38 X10'6 (4.20-5.60); RED CELL DISTRIBUTION WIDTH 12.9 % (11.5-14.5); WHITE BLOOD COUNT 9.7 X10'3 (4.5-11.0)
[2022-07-03 20:43] LABS: ALANINE AMINOTRANSFERASE 22 U/L (12-78); ALBUMIN 3.6 G/DL (3.4-5.0); ALBUMIN/GLOBULIN RATIO 1.1 (1.1-1.5); ALKALINE PHOSPHATASE 106 IU/L (46-116); ANION GAP 5 (8-16); ASPARTATE AMINO TRANSFERASE 18 U/L (10-37); BILIRUBIN,TOTAL 0.6 MG/DL (0.1-1.0); BLOOD UREA NITROGEN 21 MG/DL (7-18); BUN/CREATININE RATIO 21.6 (6.6-38.0); CHLORIDE 102 MMOL/L (99-107); CREATININE 0.97 MG/DL (0.40-0.90); GLUCOSE 125 MG/DL (70-104); SODIUM 136 MMOL/L (135-145); TOTAL CARBON DIOXIDE 29.3 MMOL/L (24-32); TOTAL PROTEIN 6.8 G/DL (6.4-8.2); eGFR 55 ML/MIN
[2022-07-03] MEDS ORDERED: HYDR-3965 PO (20:48)
== END 2022-07-03 21:08 | disposition home or self-care (01) ==
LOC: ER 17:09
DX: M25.552 Pain in left hip (principal); I10 Essential (primary) hypertension; J45.909 Unspecified asthma, uncomplicated; E11.9 Type 2 diabetes mellitus without complications; Z86.718 Personal history of other venous thrombosis and embolism; Z90.49 Acquired absence of other specified parts of digestive tract; Z90.710 Acquired absence of both cervix and uterus; Z98.890 Other specified postprocedural states; Z86.73 Personal history of transient ischemic attack (TIA), and cerebral infarction without residual deficits; Z88.8 Allergy status to other drugs, medicaments and biological substances; Z79.82 Long term (current) use of aspirin; Z79.4 Long term (current) use of insulin; Z79.899 Other long term (current) drug therapy
CPT/HCPCS: 36415; 80053; 85025; 99283